=== PATIENT | male | born 1955 | race Caucasian/White ===

== ENCOUNTER 2016-11-30 04:07 | Emergency (ER) | payer OTHER ==
[~2016-11-30] VITALS: Ht 177.8 cm; Wt 83.0 kg
[~2016-11-30 04:07] MED LIST: ATEN-36 PO; ATOR20TA18 PO; LORA-320 PO
[2016-11-30 04:09] VITALS: Ht 177.8 cm; Wt 83.0 kg
--- OUTSIDE RECORDS SUMMARY | 2016-11-30 04:12 | XMS REPORT | Continuity of Care Document ---
Author Author [facility] Address Unknown Phone Unavailable Allergies Medications Problems Procedures Results Encounters ACCT No. Visit Date/Time Discharge Status Pt. Type Provider Facility Loc./Unit Complaint [id number] 04/24/2014 06:32:00 2013 23:59:59 CLS Outpatient [id number] 04/09/2014 15:06:00 2013 23:59:59 CLS Outpatient
--- OUTSIDE RECORDS SUMMARY | 2016-11-30 04:12 | XMS REPORT | Summary of Care ---
Author Author Hector Watts M.D. Unknown Address [address], [place] [id number] Phone Unavailable Care Team Providers Care Brim Pouncer Machine Operator Name Role Phone Mac Neville, Deandre Unavailable Unavailable George Reeves PP Unavailable Unavailable Unavailable Functional Status Functional Status Health Issues* Name Dates Details Functional status health issues are not documented Status: Cognitive Status Health Issues* Name Dates Details Cognitive status health issues are not documented Status: Problems Name Dates Details Fungal otitis externa (117.9, B36.9) Status: Active Encounter for preventive health examination (V70.0, Z00.00) Status: Transitioned Infective otitis externa (380.10, H60.399) Status: Active Allergic rhinitis (477.9, J30.9) Status: Active Sensorineural hearing loss (389.10, H90.5) Status: Active Tinnitus (388.30, H93.19) Status: Active Medications Name Dates Details LORazepam 1 MG Oral Tablet TAKE 1 TABLET 3 times daily Quantity: 60 * Started 09-Apr-2014 ActiveLevothyroxine Sodium 50 MCG Oral Tablet TAKE 1 TABLET DAILY. * Quantity: 30 Refills: 11 * Started 09-Apr-2014 ActiveAtorvastatin Calcium 10 MG Oral Tablet TAKE 1 TABLET DAILY. * Quantity: 30 Refills: 0 * Started 09-Apr-2014 ActiveAtenolol 25 MG Oral Tablet TAKE 1 TABLET DAILY. * Quantity: 30 Refills: 11 * Started 09-Apr-2014 ActiveZyrTEC Allergy 10 MG Oral Capsule 1 pill daily * Quantity: 30 Refills: 3 * Started 09-Apr-2014 ActiveClotrimazole 1 % External Solution USE 5 DROPS IN EACH EAR AT BEDTIME FOR 2 WEEKS * Quantity: 1 Refills: 0 Hector Watts M.D.* Started 09-Apr-2014 [id number] ML Bottle Levocetirizine Dihydrochloride 5 MG Oral Tablet TAKE 1 TABLET DAILY. * Quantity: 30 Refills: 5 Hector Watts M.D.* Started Active Allergies and Adverse Reactions Name Dates Details LamISIL TABS Reaction: Headache, Nausea Status: Active PredniSONE TABS Status: Active Procedures Procedure Dates Details Procedures not documented Immunization Name Dates Details Immunizations not documented Social History Smoking Status* Unknown if ever smoked Vital Signs Date Test Result Details No Known Vitals to report Results Date Description Value Details Results not documented Plan of Care Planned Observations* Name Dates Details Planned Goals not documented Goal Planned Encounters* Appointment; Provider: Hector Watts On 15:00 Instructions * Instructions not documented Encounters Appointment; Hector Watts Encounter Diagnosis: Problem not documented On 09:45 Appointment; Hector Watts Encounter Diagnosis: Problem not documented On 11:00 Appointment; Hector Watts Encounter Diagnosis: Problem not documented On 06-Aug-2014 14:00 Appointment; Hector Watts Encounter Diagnosis: Problem not documented On 07-May-2014 10:45 Appointment; Hector Watts Encounter Diagnosis: Problem not documented On 30-Apr-2014 14:30 Appointment; Kimberly Salgado Encounter Diagnosis: Problem not documented On 15-Apr-2014 13:30 Appointment; Hector Watts Encounter Diagnosis: Problem not documented On 09-Apr-2014 13:45
--- OUTSIDE RECORDS SUMMARY | 2016-11-30 04:12 | XMS REPORT | Summary of Care ---
Author Author Hector Watts M.D. Organization Unknown Address [address], [place] [id number] Phone Unavailable Care Team Providers Care Cable Operator Name Role Phone Mac Neville, Deandre Unavailable Unavailable George Reeves PP Unavailable Unavailable Unavailable Functional Status Functional Status Health Issues* Name Dates Details Functional status health issues are not documented Status: Cognitive Status Health Issues* Name Dates Details Cognitive status health issues are not documented Status: Problems Name Dates Details Encounter for preventive health examination (V70.0, Z00.00) Status: Transitioned Asymmetrical right sensorineural hearing loss (389.16, H90.41) Status: Active Allergic rhinitis (477.9, J30.9) Status: Active Medications Name Dates Details LORazepam [...] Refills: 0 Hector Watts M.D.* Started 09-Apr-2014 [id number] ML Bottle Levocetirizine Dihydrochloride 5 MG Oral Tablet TAKE 1 TABLET DAILY. * Quantity: 30 Refills: 5 Hector Watts M.D.* Started Active Allergies and Adverse Reactions Name Dates Details LamISIL TABS Reaction: Headache, Nausea Status: Active PredniSONE TABS Status: Active Past Medical History Name Dates Details History of Fungal otitis externa (117.9, B36.9) Status: Resolved History of Infective otitis externa (380.10, H60.399) Status: Resolved History of Sensorineural hearing loss (389.10, H90.5) Status: Resolved History of tinnitus (V12.49, Z86.69) Status: Resolved Procedures Procedure Dates Details Procedures not documented [...]
--- OUTSIDE RECORDS SUMMARY | 2016-11-30 04:12 | XMS REPORT | Summary of Care ---
Author Author Hector Wtats M.D. Organization Unknown Address [address] [place], [place] [id number] Phone Unavailable Care Team Providers Care Industrial Maintenance Technician Name Role Phone Mac Neville, Deandre Unavailable Unavailable George Reeves PP Unavailable Unavailable Unavailable Functional Status Functional Status Health Issues* Name Dates Details Functional status health issues are not documented Status: Cognitive Status Health Issues* Name Dates Details Cognitive status health issues are not documented Status: Problems Name Dates Details Fungal otitis externa (117.9, B49) Status: Active Encounter for preventive health examination [...] Refills: 0 Hector Watts M.D.* Started 09-Apr-2014 [id number] ML Bottle Azelastine HCl - 0.15 % Nasal Solution USE 2 PUFFS IN EACH NOSTRIL EVERY 12 HOURS NEEDED * Quantity: 1 Refills: 5 Hector Watts M.D.* Started 06-Aug-2014 Ended 27-Jul-2015 [id number] ML [place] Btl Levocetirizine Dihydrochloride 5 MG Oral Tablet TAKE [...] Planned Encounters* Appointment; Provider: Hector Watts On 09:45 Instructions * Instructions not documented Encounters Appointment; [...]
--- OUTSIDE RECORDS SUMMARY | 2016-11-30 04:12 | XMS REPORT | Summary of Care ---
Author Author Hector Watts M.D. Unknown Address [address], [place] [id number] Phone Unavailable Care Team Providers Care Gastroenterology Teacher Name Role Phone Mac Neville, Deandre Unavailable [...] Refills: 0 Hector Watts M.D.* Started 09-Apr-2014 [id number] ML Bottle Levocetirizine Dihydrochloride 5 MG Oral [...] Dates Details Planned Goals not documented Goal Instructions * Instructions not documented Encounters Appointment; [...]
--- OUTSIDE RECORDS SUMMARY | 2016-11-30 04:12 | XMS REPORT | Summary of Care ---
Author Author Hector Watts M.D. Unknown Address Unknown Phone Unavailable Care Team Providers Care News Correspondent Name Role Phone Mac Neville, Deandre Unavailable Unavailable Unavailable Unavailable Functional Status Functional Status Health Issues* Name Dates Details Functional status health issues are not documented Status: Cognitive Status Health Issues* Name Dates Details Cognitive status health issues are not documented Status: Problems Name Dates Details Fungal otitis externa (117.9, B49) Status: Active Encounter for preventive health examination (V70.0, Z00.00) Status: Transitioned Allergic rhinitis (477.9, J30.9) Status: Active Sensorineural hearing loss (389.10, H90.5) Status: Active Infective otitis externa (380.10, H60.399) Status: Active Medications Name Dates Details Clotrimazole 1 % External Solution USE 5 DROPS IN EACH EAR AT BEDTIME FOR 2 WEEKS Quantity: 1 Hector Watts M.D.* Started 09-Apr-2014 [id number] ML Bottle Azelastine HCl - 0.15 % Nasal Solution USE 2 PUFFS IN EACH NOSTRIL EVERY 12 HOURS NEEDED * Quantity: 1 Refills: 5 Hector Watts M.D.* Started 06-Aug-2014 Ended [id number] ML [place] Btl Fluticasone Propionate 50 MCG/ACT Nasal Suspension USE 1 TO 2 SPRAYS IN EACH NOSTRIL ONCE DAILY. * Quantity: 1 Refills: 2 * Started 09-Apr-2014 [id number] GM Bottle ZyrTEC Allergy 10 MG Oral Capsule 1 pill daily * Quantity: 30 Refills: 3 * Started 09-Apr-2014 ActiveAtenolol 25 MG Oral Tablet TAKE 1 TABLET DAILY. * Quantity: 30 Refills: 11 * Started 09-Apr-2014 ActiveAtorvastatin Calcium 10 MG Oral Tablet TAKE 1 TABLET DAILY. * Quantity: 30 Refills: 0 * Started 09-Apr-2014 ActiveLevothyroxine Sodium 50 MCG Oral Tablet TAKE 1 TABLET DAILY. * Quantity: 30 Refills: 11 * Started 09-Apr-2014 ActiveLORazepam 1 MG Oral Tablet TAKE 1 TABLET 3 times daily * Quantity: 60 Refills: 5 * Started 09-Apr-2014 Active Allergies and Adverse Reactions Name Dates Details PredniSONE TABS Status: Active Procedures Procedure Dates [...]
--- NOTE | 2016-11-30 04:37 | ERPDOC ---
Departure Disposition Decision Date: Nov 30, 2016 Disposition Decision Time: 05:37 Disposition: 01 DISCHARGED HOME, SELF-CARE Impression Impression Impression: Primary Impression: Anxiety Additional Impressions: Tachycardia Tachypnea Severity: Moderate Condition: Improved Seen By: Physician only Referrals: ALEXUS MALONEY MD (PCP) 1 Week Patient Instructions: Panic Attack (ED) Problems/Meds/Labs Reviewed?: Yes Medications reviewed and manag: Yes Additional Instructions: You have had a panic attack. You should discuss other strategies to help decrease your baseline anxiety with your doctor (counseling, SSRI/SNRI, B- blockers, etc). Continue to monitor your saliva and sensation under your tongue. If it does not improve, discuss this with your dentist. Follow up with your doctor in the coming week. Follow up care ordered?: Yes Mental Status: Alert, Oriented HPI - Psychosocial General Chief Complaint: Psychiatric Problems Stated Complaint: NAUSEA Time Seen by MD: 04:32 Source: patient, family Exam Limitations: no limitations HPI - Psychosocial Initial Comments 61yo man presents to the ER tonight with nausea, fuzzy head, and dry mouth. Pt woke up with a dry mouth (an ongoing issue since a dental procedure 3 weeks ago) . After micturating, his sx got worse; he took a lorazepam and called EMS when sx did not improve. Pt was seen for his xerostomia complaints yesterday with his PCM. Pt had no objective findings. Pt has a long-standing h/o anxiety; takes lorazepam tid and prn. Is not on an SSRI or SNRI. Now that pt is here, he feels foolish and believes that he had a panic attack. Occurred At: home Onset: Rapid Duration: 1 hr Severity: moderate Associated Symptoms: anxiety, impaired concentration Hx of Similar Symptoms: Yes Allergies: Coded Allergies: No Known Allergies (Unverified , 11/30/16) Past History Past Medical History Metabolic: hypercholesterolemia, hypertension Psychological: anxiety, bipolar Surgical History General: other Vaccines Hx Influenza Vaccination: Yes (05/2012) Hx Pneumococcal Vaccination: No Review of Systems ENMT Mouth/Throat: dry mouth Cardiovascular Rhythm/Rate: tachycardia Pulmonary Respiratory: tachypnea Neurological General: vertigo All other Systems All Other Systems: Reviewed and Negative Physical Exam General General Nourishment: well nourished, well developed, appears stated age, no acute distress, adult, thin General Body Habitus: well groomed Vitals and Pain Weight: Kilograms: Height (feet): Height (inches): Triage Pain Scale: RN VS reviewed by Provider: Yes Normal Exams: Head: Normocephalic w/o trauma Eyes: Pupils are PERRLA w/ EOMI, No scleral icterus, irritation ENMT: No facial trauma, nasal exudates, pharyngeal erythema Neck: Full range of motion, without adenopathy, JVD Lymphatic: No lymphadenopathy Musculoskeletal: No tenderness, or deformity noted Integumentary: No rashes, hives, or bruising noted Neurologic: Patient is alert, and oriented Psychiatric: Patient exhibits, appropriate attention ENMT (brief) ENMT Brief: FOUND: TM clear, TM good light reflex, ear canals clear, mucosa moist, normal tonsils, NOT FOUND: lesions, pharnyx erythema, tonsillar deviation Respiratory (brief) Respiratory: FOUND: clear all busch, equal bilaterally, symmetrical, NOT FOUND : rales, wheezes Cardiovascular (brief) Cardiac: FOUND: regular rate, regular rhythm, NOT FOUND: click, gallop, murmur , pedal edema, peripheral edema, rub Capillary Refill: <2 sec Pulses: all distal extremities, equal, strong Abdomen (brief) Abdominal Brief: FOUND: bowel normo active x4, soft, NOT FOUND: distended, hepatosplenomegaly, pulsatile mass, tender Differential Diagnoses Considering: Anxiety, Delirium, Hallucinations, Acute Psychosis, Other (Panic attack) Progress Results/Orders Orders Procedure Category Date Status Time Hemagram - Cbc No Diff LAB 11/30/16 Complete Bmp - Basic Metabolic LAB 11/30/16 Complete Panel Propranolol (Inderal) PHA 11/30/16 Complete 04:45 UA, LAB 11/30/16 Complete Dip&Micro(Complete) & 04:53 Lab Results Laboratory Tests Test 11/30/16 04:53 White Blood Count 10.3T/MM3 Red Blood Count 5.53M/MM3 Hemoglobin 15.9GM/DL Hematocrit 47.5% Mean Corpuscular Volume 85.9UM3 Mean Corpuscular Hemoglobin 28.8UUG Mean Corpuscular Hemoglobin Concent 33.5GM/DL RDW Standard Deviation 38.8FL Platelet Count 280T/MM3 Mean Platelet Volume 10.1UM3 Urine Collection Type Cleancatch-midstream Urine Color Yellow Urine Turbidity Clear Urine pH 6.0 Urine Specific [place] 1.020 Urine Protein Negative Urine Glucose (UA) Negative Urine Ketones Trace Urine Blood 1+ Urine Nitrite Negative Urine Bilirubin Negative Urine Urobilinogen 0.2EU/DL Urine Leukocyte Esterase Negative Urine RBC 0-1/HPF Urine WBC None seen/HPF Urine Bacteria None seen Urine Culture Indicated Cult not indicated Turbidity < 20 Sodium Level 143MEQ/L Potassium Level 4.2MEQ/L Chloride Level 104MEQ/L Carbon Dioxide Level 23MEQ/L Anion Gap 16MEQ/L Blood Urea Nitrogen 12.0MG/DL Creatinine 0.9MG/DL Glomerular Filtration Rate Calc 86 BUN/Creatinine Ratio 13RATIO Glucose Level 151MG/DL Calculated Osmolality 278MOSM/KG Calcium Level 9.7MG/DL Icterus Index < 2 Chemistry Specimen Hemolysis < 15 Medications Current ED Medications Propranolol HCl (Inderal) 20 mg O ONCE PO Last administered on 11/30/16 05:01 ; Start 11/30/16 at 04:45; Stop 11/30/16 at 04:46; Status DC Progress Progress No significant abn's on Hx, PE, or labs. Discussed dx, prognosis, and tx with pt. Will need to f/u with PCM and possibly dentist. Pt voiced understanding. EKG EKG : Rate: >100 Rhythm: sinus [place]: normal QRS: normal Intervals: normal ST/T: normal Interpreted by: signing physician IVANIA GUPTA DO Nov 30, 2016 04:37 Rhythm: sinus [place]: normal QRS: normal Intervals: normal ST/T: normal Interpreted by: signing physician IVANIA GUPTA DO Nov 30, 2016 04:37
[2016-11-30] MEDS ORDERED: PROPRANOLOL 20 MG TABLET PO ONE (04:45)
--- OUTSIDE RECORDS SUMMARY | 2016-11-30 04:58 | XMS REPORT | Continuity of Care Document ---
Author Author [facility] Address Unknown Phone Unavailable Allergies Medications Problems Procedures Results Encounters ACCT No. Visit Date/Time Discharge Status Pt. Type Provider Facility Loc./Unit Complaint [id number] 04/24/2014 06:32:00 2013 23:59:59 CLS Outpatient [id number] 04/09/2014 15:06:00 2013 23:59:59 CLS Outpatient
[2016-11-30 05:05] LABS: BLOOD, URINE 1+ (NEGATIVE); COLOR,URINE YELLOW (YELLOW); LEUKOCYTE ESTERASE ,URINE NEGATIVE (NEGATIVE); NITRITE,URINE NEGATIVE (NEGATIVE); UROBILINOGEN,URINE 0.2 EU/DL (NORMAL)
--- NOTE | 2016-11-30 05:11 | NUR ---
PT STATUS PT RESTING COMFORTABLY. PT'S IN ROOM, CALL LIGHT IN REACH.
[2016-11-30 05:19] LABS: HCT - HEMATOCRIT 47.5 % (41-53); HGB - HEMOGLOBIN 15.9 GM/DL (13.5-17.5); MEAN CORPUSCULAR HGB 28.8 UUG (26-34); MEAN CORPUSCULAR HGB CONC(MCHC 33.5 GM/DL (31-37); MEAN CORPUSCULAR VOLUME 85.9 UM3 (80-100); MEAN PLATELET VOLUME 10.1 UM3 (9.4-12.4); RED BLOOD COUNT 5.53 M/MM3 (4.50-5.90); WBC - WHITE BLOOD COUNT 10.3 T/MM3 (4.5-11.0)
[2016-11-30 05:26] LABS: ANION GAP 16 MEQ/L (5-15); BUN/CREATININE RATIO 13 RATIO (6-26); CALCIUM 9.7 MG/DL (8.4-10.2); CHLORIDE 104 MEQ/L (98-107); CO2 - CARBON DIOXIDE 23 MEQ/L (22-30); CREATININE 0.9 MG/DL (0.8-1.5); GLOMERULAR FILTRATION RATE 86; GLUCOSE 151 MG/DL (75-110); POTASSIUM 4.2 MEQ/L (3.6-5); SODIUM 143 MEQ/L (134-144)
[2016-11-30 05:28] LABS: BACTERIA,URINE NONE SEEN (NEGATIVE); RBC,URINE 0-1 /HPF (0-3); WBC,URINE NONE SEEN /HPF (0-5)
--- NOTE | 2016-11-30 05:30 | NUR ---
PT STATUS PT STATES HE HAS NO FURTHER C/O AND IS READY TO GO HOME. PT'S REMAINS IN ROOM WITH PT, CALL LIGHT IN REACH.
--- NOTE | 2016-11-30 05:40 | NUR ---
PROVIDER DR. GUPTA IN ROOM WITH PT.
[2016-11-30 05:48] VITALS: BP 140/79; PULSE 89; RESP 14; TEMP 97.4; O2SAT 94
--- NOTE | 2016-11-30 05:48 | NUR ---
DISMISSAL PT IS RELEASED WITH DISMISSAL INSTRUCTIONS. PT VERBALIZED UNDERSTANDING OF INSTRUCTIONS AND DENIES ANY QUESTIONS. PT STATES THE ORAL MEDICATION MAKES HIM FEEL MUCH BETTER AND HE HAS NO C/O AT THIS TIME. PT IS AMBULATORY OUT OF THE ED WITHOUT DIFFICULITES, PT'S WILL DRIVE PT HOME.
== END 2016-11-30 05:48 | disposition home or self-care (01) ==
LOC: ED 04:07
DX: F41.9 Anxiety disorder, unspecified (principal); R00.0 Tachycardia, unspecified; R06.82 Tachypnea, not elsewhere classified
CPT/HCPCS: 36415; 80048; 81001; 85027